=== PATIENT | male | born 1990 | race Two or more races ===

== ENCOUNTER 2016-11-03 03:24 | Emergency (ER) | payer OTHER ==
[2016-11-03] MEDS ORDERED: ACETAMINOPHEN 325 MG TABLET PO ONE (04:25)
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
[2016-11-03] MEDS ORDERED: OXYCODONE-ACETAMINOPHEN 5-325 MG TABLET PO ONE (07:36)
[2016-11-03] MEDS ORDERED: BUPIVACAINE HCL 0.5 % INJ/PF 30 ML SDV INJ ONE (08:41)
[2016-11-03 11:12] VITALS: BP 111/55
== END 2016-11-03 11:12 | disposition home or self-care (01) ==
LOC: ER 03:24
PROC: 3E0T3BZ Introduction of Anesthetic Agent into Peripheral Nerves and Plexi, Percutaneous Approach (ICD-10-PCS; principal; 2016-11-03)
DX: S60.512A Abrasion of left hand, initial encounter (principal); M79.642 Pain in left hand; Y04.8XXA Assault by other bodily force, initial encounter
CPT/HCPCS: 99283